=== PATIENT | female | born 1960 | race African-American/Black ===

== ENCOUNTER → 2019-01-31 | Outpatient (CLI) | payer OTHER ==
[2015-06-06 09:18] VITALS: BP 157/87
[~2019-01-31] MED LIST: IBUP200C
--- NOTE | 2019-01-31 16:55 | RAD ---
EXAM: 3 views right shoulder DATE: 01/31/2019 12:00 AM INDICATION: Right shoulder pain, adhesive capsulitis COMPARISON: No Prior FINDINGS/ IMPRESSION: No evidence of acute fracture or dislocation. Joint spaces are preserved without significant degenerative/proliferative change. Humeral head is not high riding AC joint is congruent. Electronically signed by: Rock Elaine MD (01/31/2019 4:52 PM) [id number]
== END | disposition home or self-care (01) ==
LOC: RAD 11:50
PROVIDERS: ATTEND Emergency Medicine
DX: Z02.71 Encounter for disability determination (principal); M75.01 Adhesive capsulitis of right shoulder; M25.511 Pain in right shoulder
CPT/HCPCS: 73030